=== PATIENT | female | born 1990 | race Caucasian/White ===

== ENCOUNTER 2025-04-25 07:44 | Outpatient (CLI) | payer OTHER | END 2025-04-25 07:53 | disposition home or self-care (01) | LOC: PRENATAL 07:44 | PROVIDERS: ATTEND Obstetrics & Gynecology Maternal & Fetal Medicine | DX: O44.02 Complete placenta previa NOS or without hemorrhage, second trimester (principal); O30.92 Multiple gestation, unspecified, second trimester; Z3A.20 20 weeks gestation of pregnancy ==